=== PATIENT | male | born 2000 | race Caucasian/White ===

== ENCOUNTER 2021-11-02 11:26 | Emergency (ER) | payer MEDICAID ==
[~2021-11-02] VITALS: Ht 160 cm; Wt 86.4 kg
[2021-11-02 12:32] VITALS: BP 136/86
[2021-11-02] MEDS ORDERED: ACET-2080 PO (12:54)
[2021-11-02] MEDS ORDERED: IBUP-1554 PO (12:54)
[2021-11-02] MEDS ORDERED: IBUPROFEN 600 MG TABLET PO ONE (13:00)
[2021-11-02] MEDS ORDERED: ACETAMINOPHEN/CODEINE 300-30 MG TABLET PO ONE (13:00)
== END 2021-11-02 13:35 | disposition home or self-care (01) ==
LOC: EMS 11:26
DX: S52.502A Unspecified fracture of the lower end of left radius, initial encounter for closed fracture (principal); S52.602A Unspecified fracture of lower end of left ulna, initial encounter for closed fracture; F10.20 Alcohol dependence, uncomplicated; F12.90 Cannabis use, unspecified, uncomplicated; W19.XXXA Unspecified fall, initial encounter; Y93.51 Activity, roller skating (inline) and skateboarding; Y92.89 Other specified places as the place of occurrence of the external cause; Y99.8 Other external cause status
CPT/HCPCS: 99283